=== PATIENT | female | born 1935 | race Caucasian/White ===

== ENCOUNTER → 2024-03-06 09:22 | Outpatient (REF) | payer MEDICARE, SELFPAY | LOC: RST 09:22 | PROVIDERS: ATTENDING PHYSICIAN Family Medicine | DX: R13.10 Dysphagia, unspecified (principal) | CPT/HCPCS: 74230; 92611 ==

== ENCOUNTER → 2024-05-01 10:41 | Outpatient (REF) | payer MEDICARE, SELFPAY ==
[2024-05-01 11:24] LABS: % Basophils 0.8 % (0-2); % Eosinophils 6.9 % (0-6); % Immature Granulocytes 0.2 % (0-0.5); % Lymphocytes 39.6 % (20.5-51.1); % Monocytes 15.2 % (1.7-9.3); % Neutrophils 37.3 % (42.2-75.2); Absolute Eosinophils 0.3 10^3/uL (0-0.7); Absolute Monocytes 0.8 10^3/uL (0.1-0.6); Absolute Neutrophils 1.8 10^3/uL (1.4-6.5); Hematocrit 35.7 % (37.0-47.0); Hemoglobin 11.9 g/dL (12.0-16.0); Mean Corp Hgb Conc. 33.3 g/dL (33.0-37.0); Mean Corpuscular Hgb 32.3 pg (27.0-31.0); Mean Platelet Volume 9.5 fL (7.4-10.4); Nucleated Red Blood Cells % 0 %; Platelet Count 215 10^3/uL (130-400); Red Blood Cell Count 3.68 10^6/uL (4.20-5.40); Red Cell Dist. Width 13.3 % (11.5-14.5); White Blood Cell Count 4.9 10^3/uL (4.8-10.8)
[2024-05-01 12:12] LABS: ALT (SGPT) 14 U/L (0-35); AST (SGOT) 27 U/L (14-36); Albumin 3.3 g/dl (3.5-5.0); Alkaline Phosphatase 69 U/L (38-126); Blood Urea Nitrogen 16 mg/dl (7-17); Calcium 9.4 mg/dl (8.4-10.2); Carbon Dioxide 29 mmol/L (22-30); Chloride 103 mmol/L (98-107); Glucose 78 mg/dl (70-99); Potassium 4.6 mmol/L (3.5-5.1); Sodium 137 mmol/L (135-145); Total Bilirubin 0.8 mg/dl (0.2-1.3); Total Protein 5.9 g/dl (6.3-8.2); eGFR > 60.00
== END ==
LOC: OLABPATH 10:41
PROVIDERS: ATTENDING PHYSICIAN Internal Medicine
DX: I10 Essential (primary) hypertension (principal); I48.91 Unspecified atrial fibrillation; I50.9 Heart failure, unspecified
CPT/HCPCS: 36415; 80053; 85025

== ENCOUNTER → 2024-05-01 11:30 | Outpatient (REF) | payer MEDICARE, SELFPAY ==
[2024-05-02 14:47] LABS: Urine Albumin Negative (Neg - Trace); Urine Bilirubin Negative (Negative); Urine Character Clear (Clear); Urine Color Yellow; Urine Glucose Negative (Negative); Urine Ketone Negative (Negative); Urine Leukocyte 1+ (Negative); Urine Nitrite Negative (Negative); Urine Occult Blood Negative (Negative); Urine Urobilinogen Negative (Neg - 1+)
[2024-05-02 15:36] LABS: Urine Squamous Cell 0-2 /LPF (Few)
[2024-05-02 15:37] LABS: Urine Bacteria Few (Negative); Urine Red Blood Cell 0-2 /HPF (0-2); Urine White Cell 16-20 /HPF (0-5)
== END ==
LOC: OLABPATH 11:30
PROVIDERS: ATTENDING PHYSICIAN Internal Medicine
DX: I10 Essential (primary) hypertension (principal); I48.91 Unspecified atrial fibrillation; N39.0 Urinary tract infection, site not specified
CPT/HCPCS: 36415; 80053; 81003; 81015; 85025; 87086

== ENCOUNTER → 2024-05-15 09:44 | Outpatient (REF) | payer MEDICARE, SELFPAY | LOC: RAD 09:44 | PROVIDERS: ATTENDING PHYSICIAN Internal Medicine | DX: R13.10 Dysphagia, unspecified (principal) | CPT/HCPCS: 74230; 92611 ==

== ENCOUNTER 2024-05-25 00:59 | Emergency (ER) | payer MEDICARE, SELFPAY ==
[2024-05-25 01:00] VITALS: BMI 16.8
[2024-05-25 01:01] VITALS: BP 151/66
[2024-05-25 01:11] VITALS: BP 151/66
[2024-05-25 02:00] VITALS: BP 124/63
[2024-05-25 03:00] VITALS: BP 130/62
--- NOTE | 2024-05-25 03:07 | ED.GENMED ---
History of Present Illness
General
Chief Complaint: Cough
Source: patient, ambulance crew, residential (prison records) and previous radiology exam (Prior video swallowing evaluations February of this year and most recently May 15, 2024 showing deep penetration with thin and thickened liquids)
Exam Limitations: none
Time Seen by Provider: 05/25/24 02:32
Nursing documentation reviewed up to this point in time: agreed with
History of Present Illness
History of Present Illness:
This is an 88-year-old woman with history of Alzheimer's disease, hypertension, CHF, A-fib, dysphagia, aortic stenosis. She has undergone speech therapy evaluations, video swallowing studies February and then again May 15 of this year which continued
to show upper as well as deep penetration with thin as well as honey thickened liquids. It also demonstrated persistent collections in vallecula that patient is unable to clear with coughing nor with swallowing. Despite concern for significant
risk for aspiration patient has elected to advance her diet to thin liquids noting that she is really not a fan of honey thickened liquids/pureed foods and her overall goal is to enjoy her foods. She resides at an assisted living facility and is
DNR status.
Since advancing to thin liquid she does admit to increased cough after swallowing with significant, persistent coughing episode tonight prompting patient to notify the staff who in turn sent the patient to the ED for further evaluation.
She denies shortness of breath, denies chest pain, no fever no chills. No palpitations, no dizziness nor lightheadedness.
Cough has been dry, hacking. She has had no sore throat. She does admit to intermittently mildly raspy voice after coughing which then resolves.
Past History
Past History
ED Past Medical History: Arrthythmia (Atrial fibrillation), CHF, HTN, Valvular disease (Aortic stenosis) and Other (Alzheimer's disease, dysphagia with concern for aspiration; osteoporosis; metabolic encephalopathy)
ED Past Surgical History: Orthopedic (Lumbar surgery, right shoulder replacement)
Social History
Tobacco: Non-smoker
Alcohol: None
Personal:
Living: assisted living
Family History
Family History: Other (Noncontributory)
Phy Exam
Physical Exam
Physical Exam:
GENERAL: 88-year-old woman, thin build, is bright and alert, oriented x 3, pleasant, appears in no acute distress. Intermittent harsh, hacking nonproductive cough is noted but able to speak in full sentences.
EYE: anicteric
NECK: Supple, nontender, no meningismus, no significant adenopathy.
ENT: posterior pharynx is clear, oral mucosa is moist. TM clear b/l, nares patent.
CARDIAC: Regular rate and rhythm. 2/6 holosystolic murmur left sternal border.
LUNGS: Clear breath sounds bilaterally, no acute respiratory distress, no wheezes/rales/rhonchi. Intermittent harsh, hacking nonproductive cough is noted.
ABDOMEN: Soft, nondistended, without focal tenderness, normoactive BS.
NEUROLOGICAL: Alert and oriented x3, no focal neuro deficits. Gait is steady.
SKIN: Warm and dry, normal color, skin intact. No rash.
MUSCULOSKELETAL: No C/C/E. peripheral pulses are full and equal b/l. No palpable tenderness.
PSYCH: Normal and appropriate interaction.
Course
Orders/Labs/Results
Orders:
Orders
05/25/24 01:17
Chest [CR Chest - 2 Views ] Urgent
Comment:
Reason For Exam: cough
05/25/24 02:50
Ipratropium/Albuterol Sulfate [Duoneb] 3 ml INH R NOW STA
Vital Signs
Initial and Last Documented VS:
Initial Vital Signs
Temp Pulse Resp BP Pulse Ox
97.8 F 64 18 151/66 98
05/25/24 01:01 05/25/24 01:01 05/25/24 01:01 05/25/24 01:01 05/25/24 01:01
Last Documented Vital Signs
Temp Pulse Resp BP Pulse Ox
97.8 F 61 19 130/62 96
05/25/24 01:01 05/25/24 03:00 05/25/24 03:00 05/25/24 03:00 05/25/24 03:00
MDM/Problems Addressed
Differential Diagnosis Includes:
Patient presents with cough that began after dinner tonight, significant concern for aspiration and she notes similar cough after drinking fluids, and ongoing ishial but admittedly worse since advancing her diet to thin liquids this past week.
She does have history of aortic stenosis, CHF, A-fib but has had no shortness of breath, nor dyspnea on exertion, no weight change, lungs are clear to auscultation. Nothing in history nor exam to suggest CHF as cause for cough.
Chest x-ray shows right basilar scarring versus small pleural effusion on the right. Thoracic compression fracture with vertebroplasty. No evidence of infiltrate nor CHF.
Pulse ox is 98%, no respiratory distress but intermittent cough persists.
Patient is well aware that she is at significant risk for aspiration and that coughing after swallowing liquids will persist. At this point there is nothing to indicate aspiration pneumonitis but this is certainly a risk for developing.
Will trial a DuoNeb nebulizer to see if this helps with current cough.
Chronic conditions affecting care: HTN, Arrhythmia and Other (Known dysphagia with significant aspiration risk with thin liquids and honey thickened liquids.)
*Radiology
Radiology exam reviewed: preliminary read by ED provider (Chest x-ray shows small pleural effusion versus chronic atelectasis right base, lower thoracic compression fracture with vertebroplasty. No evidence of infiltrate nor CHF)
*Pulse Oximetry
Patient hypoxic: no
*Critical Care Note
Total Time (30-74mins, 75-104mins- exclusive of procedures): Not Applicable
Update Note
Update Note:
05/25/2024 0438 AM
Patient has had complete relief of cough after nebulizer treatment. Is resting comfortably. Sleeps when undisturbed.
Respirations remain easy and nonlabored and lungs are clear to auscultation.
I suspect an element of laryngeal spasm likely related to near aspiration, ongoing dysphagia.
Will discharge back to assisted living facility.
Patient has been encouraged to continue dysphagia diet plan.
Will add albuterol nebulizer treatments for as needed cough.
Prompt follow-up with PCP.
ED Attending Note
-
Portions of this chart may have been created with voice recognition software.� Occasional wrong word or��sound alike� substitutions may have occurred due to the inherent limitations of voice recognition software.
Discharge Plan
Departure
Patient Disposition: Assisted Living
Date of Disposition: 05/25/24
Time of Disposition: 04:39
Patient with high blood pressure during this ER visit?: No
Condition: Good
Discharge Problem:
Dysphagia, DYSPHAGIA related cough
Instructions: How to Use a Nebulizer, Adult, Dysphagia in adults - Discharge instructions
Prescriptions:
New
albuterol sulfate 2.5 mg /3 mL (0.083 %) solution for nebulization
2.5 mg inhalation QID PRN (Reason: cough) Qty: 180 0RF
No Action
calcium carbonate [Calcium 600] 600 mg calcium (1,500 mg) Tablet
1,200 mg PO DAILY
omeprazole 20 mg Capsule,Delayed Release(Dr/Ec)
20 mg PO DAILY
furosemide 20 mg Tablet
20 mg PO DAILY
lisinopril 2.5 mg Tablet
2.5 mg PO DAILY
metoprolol tartrate 25 mg Tablet
12.5 mg PO BID
Eliquis 2.5 mg Tablet
2.5 mg PO BID
Referrals:
Geo Liu DO [Family Provider] - Call in 1-3 days for appt
Interventions
Interventions:
*Risk Screen - Suicide Last Done: 05/25/24 01:01
*General Assessment Last Done: 05/25/24 01:01
*Neglect/Abuse Screening Last Done: 05/25/24 01:01
ED- Fall Risk Assessment Last Done: 05/25/24 01:01
*ED COVID-19 Vaccine History Last Done: 05/25/24 01:01
ED- Pulmonary Assessment Last Done: 05/25/24 01:01
Discharge Date and Time
Print Language: TURKISH
[2024-05-25] MEDS: DUONEB 3 ML INH (03:12)
[2024-05-25 04:00] VITALS: BP 111/49
[2024-05-25 05:00] VITALS: BP 107/49
== END 2024-05-25 05:46 ==
LOC: EMR 00:59
PROVIDERS: EMERGENCY PHYSICIAN Emergency Medicine; FAMILY PHYSICIAN Internal Medicine
DX: R13.10 Dysphagia, unspecified (principal); I11.0 Hypertensive heart disease with heart failure; I50.9 Heart failure, unspecified; I48.91 Unspecified atrial fibrillation
CPT/HCPCS: 99284; 94640; 71046

== ENCOUNTER → 2024-12-18 10:49 | Outpatient (REF) | payer MEDICARE, SELFPAY ==
[2024-12-18 11:52] LABS: % Basophils 0.1 % (0-2); % Eosinophils 3.5 % (0-6); % Immature Granulocytes 0.8 % (0-0.5); % Lymphocytes 33.5 % (20.5-51.1); % Neutrophils 50.1 % (42.2-75.2); Absolute Eosinophils 0.3 10^3/uL (0-0.7); Absolute Immature Granulocytes 0.1 10^3/uL (0-0.05); Absolute Lymphocytes 2.6 10^3/uL (1.2-3.4); Absolute Monocytes 0.9 10^3/uL (0.1-0.6); Absolute Neutrophils 3.9 10^3/uL (1.4-6.5); Hematocrit 36.2 % (37.0-47.0); Hemoglobin 11.9 g/dL (12.0-16.0); Mean Corp Hgb Conc. 32.9 g/dL (33.0-37.0); Mean Corpuscular Hgb 31.6 pg (27.0-31.0); Mean Platelet Volume 9.3 fL (7.4-10.4); Nucleated Red Blood Cells % 0 %; Platelet Count 348 10^3/uL (130-400); Red Blood Cell Count 3.77 10^6/uL (4.20-5.40); Red Cell Dist. Width 13.5 % (11.5-14.5); White Blood Cell Count 7.8 10^3/uL (4.8-10.8)
[2024-12-18 12:47] LABS: ALT (SGPT) 14 U/L (0-35); AST (SGOT) 23 U/L (14-36); Albumin 3.1 g/dl (3.5-5.0); Alkaline Phosphatase 88 U/L (38-126); Blood Urea Nitrogen 17 mg/dl (7-17); Calcium 8.8 mg/dl (8.4-10.2); Carbon Dioxide 32 mmol/L (22-30); Chloride 99 mmol/L (98-107); Glucose 79 mg/dl (70-99); Magnesium 2.2 mg/dl (1.6-2.3); Potassium 4.6 mmol/L (3.5-5.1); Sodium 135 mmol/L (135-145); Total Bilirubin 0.4 mg/dl (0.2-1.3); Total Protein 6.1 g/dl (6.3-8.2); eGFR > 60.00
== END ==
LOC: OLABPATH 10:49
PROVIDERS: ATTENDING PHYSICIAN Internal Medicine
DX: I50.9 Heart failure, unspecified (principal); E61.2 Magnesium deficiency
CPT/HCPCS: 36415; 80053; 83735; 85025